=== PATIENT | female | born 1995 ===

== ENCOUNTER 2018-09-10 16:53 | Emergency (ER) | payer MEDICAID ==
[2018-09-10] MEDS ORDERED: Sodium Chloride 0.9% 1,000 ML IV ONE (18:02)
[2018-09-10 18:21] LABS: BASO # 0.1 K/uL (0.0-0.2); BASO % 0.8 % (0.0-2.0); EOS # 0.1 K/uL (0.0-0.7); HEMOGLOBIN 12.7 g/dL (11.0-16.0); LYMPH # 2.5 K/uL (1.0-4.3); LYMPH % 19.5 % (20.0-40.0); MEAN CELL VOLUME 91.4 fL (81.0-99.0); MEAN CORPUSCULAR HEMOGLOBIN 30.7 pg (27.0-31.0); MEAN CORPUSCULAR HGB CONC 33.6 g/dL (33.0-37.0); MEAN PLATELET VOLUME 7.3 fL (7.2-11.7); MONO % 8.1 % (0.0-10.0); NEUT # 9.2 K/uL (1.8-7.0); NEUT % 70.6 % (50.0-75.0); NRBC % 0.1 % (0.0-2.0); RBC 4.14 Mil/uL (3.80-5.20); RED CELL DISTRIBUTION WIDTH 13.2 % (11.5-14.5)
[2018-09-10 18:22] LABS: SQUAMOUS EPITHIAL 6 /hpf (0-5); URINE BACTERIA OCC (<OCC); URINE BILIRUBIN NEGATIVE (NEGATIVE); URINE BLOOD 3+ (NEGATIVE); URINE CLARITY Hazy (Clear); URINE COLOR Straw (YELLOW); URINE GLUCOSE (UA) NORMAL (Normal); URINE LEUKOCYTE ESTERASE TRACE Leu/uL (Negative); URINE PROTEIN NEGATIVE (NEGATIVE); URINE UROBILINOGEN NORMAL mg/dL (0.2-1.0)
--- NOTE | 2018-09-10 18:33 | C.PDOC ---
History Of Present Illness Patient presents to ED c/o vaginal spotting and mild pelvic cramping since approx 1pm yesterday. Spotting started out as dark and then became brighter red; she estimates she used two pads total since yesterday. Patient is , LM P 08/03/18. She denies vomiting, diarrhea, dysuria, fever, flank pain, chest pain, SOB. PMHx: fatty liver, PPD (+) at 9years old (s/p antibiotics) Time Seen by Provider: 09/10/18 17:49 Chief Complaint (Nursing): Female Genitourinary History Per: Patient History/Exam Limitations: no limitations Onset/Duration Of Symptoms: Days (2) Severity: Mild Quality Of Discomfort: Cramping Associated Symptoms: denies: Fever, Chills, Vomiting, Diarrhea, Urinary Symptoms Abnormal Vaginal Bleeding: Yes Past Medical History Reviewed: Historical Data, Nursing Documentation, Vital Signs Vital Signs: Last Vital Signs Temp 98.8 F 09/10/18 17:14 Pulse 77 09/10/18 17:14 Resp 18 09/10/18 17:14 BP 147/93 H 09/10/18 17:14 Pulse Ox 98 09/10/18 17:14 - Medical History Other PMH: fatty liver Family History: States: No Known Family Hx - Social History Hx Alcohol Use: No Hx Substance Use: No - Immunization History Hx Tetanus Toxoid Vaccination: Yes Hx Influenza Vaccination: No Hx Pneumococcal Vaccination: No Review Of Systems Constitutional: Negative for: Fever, Chills Cardiovascular: Negative for: Chest Pain Gastrointestinal: Negative for: Nausea, Vomiting, Abdominal Pain, Diarrhea Genitourinary: Positive for: Vaginal Bleeding, Pelvic Pain (mild). Negative for: Dysuria, Hematuria, Vaginal Discharge Skin: Negative for: Rash Physical Exam - Physical Exam Appears: Well, Non-toxic, No Acute Distress Skin: Normal Color, Warm, Dry, No Pale Head: Normacephalic Oral Mucosa: Moist Cardiovascular: Rhythm Regular Respiratory: Normal Breath Sounds, No Rales, No Rhonchi, No Wheezing Gastrointestinal/Abdominal: Normal Exam, Bowel Sounds, Soft, No Tenderness Back: Normal Inspection, No CVA Tenderness Neurological/Psych: Oriented x3 ED Course And Treatment - Laboratory Results Result Diagrams: 09/10/18 18:14 09/10/18 18:14 Lab Results: Urine Color Straw (YELLOW) 09/10/18 18:05 Urine Clarity Hazy (Clear) 09/10/18 18:05 Urine pH 6.0 (5.0-8.0) 09/10/18 18:05 Ur Specific [place] 1.009 (1.003-1.030) 09/10/18 18:05 Urine Protein Negative mg/dL (NEGATIVE) 09/10/18 18:05 Urine Glucose (UA) Normal mg/dL (Normal) 09/10/18 18:05 Urine Ketones Negative mg/dL (NEGATIVE) 09/10/18 18:05 Urine Blood 3+ (NEGATIVE) H 09/10/18 18:05 Urine Nitrate Negative (NEGATIVE) 09/10/18 18:05 Urine Bilirubin Negative (NEGATIVE) 09/10/18 18:05 Urine Urobilinogen Normal mg/dL (0.2-1.0) 09/10/18 18:05 Ur Leukocyte Esterase Trace [place]/uL (Negative) 09/10/18 18:05 Urine WBC (Auto) 7 /hpf (0-5) H 09/10/18 18:05 Urine RBC (Auto) 72 /hpf (0-3) H 09/10/18 18:05 Ur Squamous Epith Cells 6 /hpf (0-5) H 09/10/18 18:05 Urine Bacteria Occ (<OCC) H 09/10/18 18:05 O2 Sat by Pulse Oximetry: 98 (RA) Pulse Ox Interpretation: Normal Progress Note: Blood work, UA, transvaginal US ordered. Patient given IV NS bolus. Disposition - Disposition Disposition Time: 19:00 Condition: STABLE Forms: [facility] ([place]) - Clinical Impression Clinical Impression: Vaginal bleeding in patient at less than 20 weeks gestation Physician Patient Turnover Patient Signed Over To: Kaylie Alvarez
[2018-09-10 18:40] LABS: ALB/GLOB RATIO 1.6 (1.0-2.1); ALBUMIN 4.5 g/dL (3.5-5.0); ALT/SGPT 34 U/L (9-52); AST/SGOT 17 U/L (14-36); BLOOD UREA NITROGEN 9 mg/dL (7-17); GFR NON-AFRICAN AMERICAN > 60
[2018-09-10 19:38] VITALS: O2SAT 99
[2018-09-10 21:04] VITALS: BP 119/83; PULSE 80; RESP 18; TEMP 98.6
--- NOTE | 2018-09-11 09:13 | US ---
Pelvic ultrasound HISTORY: Pelvic pain. Bleeding. COMPARISON: None available. TECHNIQUE: Real-time sonography was performed through the pelvis utilizing transabdominal and transvaginal techniques. Findings: Positive test with HCG level measuring 4360. Uterus: 7.7 x 4.3 x 4.7 centimeters. Heterogeneous echotexture. Anteverted. Cervix measures 2.8 centimeters. Intrauterine gestational sac measures 7.8 millimeters, too small to adequately date. No yolk sac or pole are identified at this juncture. No free fluid in the pelvic cul-de-sac. Right ovary: 3.5 x 2.6 x 3.1 centimeters. Normal flow. Heterogeneous probable corpus luteal cyst measuring 2.1 x 1.6 x 1.8 centimeters. Small amount of free fluid adjacent to the right ovary. Left ovary: 2.7 x 1.8 x 2.4 centimeters. Normal flow. Impression: Positive test. Intrauterine gestational sac measuring 7.8 millimeters, too small to adequately date. No pole or yolk sac are identified at this juncture. Probable right ovarian corpus luteal cyst measuring up to 2.1 centimeters. Small amount of free fluid adjacent to the right ovary. Limited 1st trimester ultrasound for viability purposes only. Continued interval followup with serial ultrasound, serial HCG levels, and gynecological consultation would be helpful if clinically indicated. A preliminary report was generated at 8:02 p.m. on 09/10/[address] Zuhair Wilkins from [employer].
== END 2018-09-10 21:04 | disposition home or self-care (01) ==
LOC: C.ER 16:53
DX: O46.91 Antepartum hemorrhage, unspecified, first trimester (principal); Z3A.00 Weeks of gestation of pregnancy not specified
CPT/HCPCS: 76805; 76817; 80053; 81001; 84702; 85025; 86850; 86900; 96360; 99285; J7030

== ENCOUNTER 2018-09-13 08:36 | Emergency (ER) | payer OTHER | END 2018-09-13 12:31 | disposition home or self-care (01) | LOC: C.ER 08:36 ==